=== PATIENT | female | born 1980 | race Native Hawaiian/Other Pacific Islander ===

== ENCOUNTER 2021-02-08 13:01 | Observation (INO) | payer OTHER ==
[~2021-02-08] VITALS: Ht 167.6 cm; Wt 92.7 kg
[2021-02-08 13:12] VITALS: BP 122/80; TEMP 98.5
[2021-02-08 13:48] LABS: PLATELET COUNT 303 K/uL (152-353)
[2021-02-08 14:00] VITALS: BP 123/84
[2021-02-08 14:01] LABS: POTASSIUM 3.8 mmol/L (3.6-5.2)
[2021-02-08 15:00] VITALS: BP 124/85
[2021-02-08 16:00] VITALS: BP 116/74
[2021-02-08 17:00] VITALS: BP 103/66
[2021-02-08 21:54] VITALS: BP 132/77; TEMP 98.7; Ht 167.6 cm; Wt 92.7 kg
[2021-02-09] VITALS: BP 137/84; TEMP 98
[2021-02-09 04:00] VITALS: BP 140/91; TEMP 100
[2021-02-09 05:01] LABS: PLATELET COUNT 246 K/uL (152-353)
[2021-02-09 05:06] LABS: POTASSIUM 4.1 mmol/L (3.6-5.2)
--- NOTE | 2021-02-09 05:16 | NUR ---
02/08/2021 AT 1845 PATIENT ADMITTED TO ROOM# [id number] VIA WHEELCHAIR FROM THE ER FOR DIVERTICULITIS AND LLQ ABDOMINAL PAIN. PATIENT IS ALERT AND ORIENTED X 3, SKIN WARM AND DRY AND NO ACUTE DISTRESS NOTED. PATIENT ORIENTED TO ROOM AND CALL SYSTEM AND VERBALIZES UNDERSTANDING OF ALL INFORMATION GIVEN AND DENIES ANY QUESTIONS AT THIS TIME. CALL LIGHT WITHIN REACH. WILL CONTINUE TO MONITOR.
--- NOTE | 2021-02-09 05:18 | NUR ---
02/08/2021 AT 2030 PATIENT REQUESTING SOMETHING TO EAT. PATIENTS ADMISSION ORDERS STATE "NPO FOR NOW". PATIENT DENIES ANY NAUSEA OR ABDOMINAL PAIN AT THIS TIME AND STATES SHE HASNT ATE ANYTHING IN "ABOUT 2 DAYS". CALL MADE TO DR. DEL CASTILLO AND ORDERS GIVEN TO ADVANCE DIET TOLERATED. PATIENT GIVEN BRETT CRACKERS AND WATER AND TOLERATED THAT WELL. WILL CONTINUE TO MONITOR.
[2021-02-09 08:00] VITALS: BP 121/78; TEMP 98.4
[2021-02-09 12:00] VITALS: BP 116/70; TEMP 98.3
--- NOTE | 2021-02-09 15:05 | NUR ---
D/C INSTURCTIONS GIVEN AND EXPLAINED TO PT, PT VERBALIZED UNDERSTANDING, FOLLOWUP APPT. MADE WITH EM RODRIGEZ ON 02/16/21 AT 2:15PM, IV REMOVED WITH CATHTER INTACT, PT D/C VIA AMBULATION TO PERSONAL VEHICLE, NAD NOTED
== END 2021-02-09 15:00 | disposition home or self-care (01) ==
LOC: ED 13:01 → MED/SURG 17:53
PROVIDERS: ADMIT Family Medicine; ATTEND Internal Medicine Endocrinology, Diabetes & Metabolism
DX: K57.32 Diverticulitis of large intestine without perforation or abscess without bleeding (principal); N30.00 Acute cystitis without hematuria; E66.8 Other obesity; Z68.34 Body mass index [BMI] 34.0-34.9, adult; Z71.3 Dietary counseling and surveillance; B96.20 Unspecified Escherichia coli [E. coli] as the cause of diseases classified elsewhere
CPT/HCPCS: 36415; 80048; 80053; 81000; 81025; 82150; 83690; 85027; 87077; 87086; 87088; 87635; 96360; 96365; 96366; 96367; 96374; 96375; 99220; 99284; G0378; J0696; J0744; J1885; J2270; J3490; Q9963; U0003

== ENCOUNTER 2022-01-11 23:39 | Emergency (ER) | payer OTHER ==
[~2022-01-11] VITALS: Ht 167.6 cm; Wt 92.5 kg
[2022-01-11 23:49] VITALS: TEMP 98.5
[2022-01-12 00:44] VITALS: BP 150/97
== END 2022-01-12 00:46 | disposition home or self-care (01) ==
LOC: ED 23:39
DX: M75.52 Bursitis of left shoulder (principal)
CPT/HCPCS: 96372; 99283; J1885; J2930